=== PATIENT | female | born 1985 | race American Indian/Alaskan Native ===

== ENCOUNTER 2018-01-01 23:33 | Emergency (ER) | payer MEDICAID ==
--- NOTE | 2018-01-02 01:06 | XRay Report ---
FINAL REPORT PROCEDURE: XR CHEST ROUTINE 2V TECHNIQUE: PA and lateral chest radiographs were obtained. CPT 94612 HISTORY: Shortness of breath COMPARISON: No prior studies are available for comparison. FINDINGS: Heart: Normal. Mediastinum/Vessels: Normal. Lungs/Pleural space: Normal. Bony thorax: No acute osseous abnormality. Other: IMPRESSION: Normal examination.
[2018-01-02 01:25] LABS: Basophils % (Auto) 0.2 % (0.0-1.8); Eosinophils % (Auto) 0.5 % (0.0-4.3); Hematocrit 43.5 % (30.3-42.9); Hemoglobin 14.7 gm/dl (10.1-14.3); Lymphocytes # (Auto) 2.6 K/mm3 (1.2-5.4); Lymphocytes % (Auto) 27.2 % (13.4-35.0); Mean Corpuscular HGB Conc 34 % (30-34); Mean Corpuscular Hemoglobin 31 pg (28-32); Mean Corpuscular Volume 91 fl (79-97); Monocytes # (Auto) 0.6 K/mm3 (0.0-0.8); Monocytes % (Auto) 6.2 % (0.0-7.3); Platelet Count 328 K/mm3 (140-440); Red Cell Distribution Width 13.4 % (13.2-15.2)
[2018-01-02 01:49] LABS: BUN/Creatinine Ratio 29; Blood Urea Nitrogen 29 mg/dL (7-17); Calcium 9.9 mg/dL (8.4-10.2); Hemolysis Index 17
[2018-01-02] MEDS ORDERED: K-DUR PO ONE (02:41)
[2018-01-02 03:34] LABS: Bilirubin,Urine NEG (Negative); Blood,Urine NEG (Negative); Color,Urine Yellow (Yellow); Protein,Urine <15 mg/dL mg/dL (Negative); RBC,Urine < 1.0 /HPF (0.0-6.0); Urobilinogen,Urine < 2.0 mg/dL (<2.0); WBC,Urine < 1.0 /HPF (0.0-6.0)
[2018-01-02 03:35] LABS: HCG Qualitative,Urine Negative (Negative)
--- NOTE | 2018-01-02 03:54 | Emergency Department Report ---
- General Chief complaint: Dizziness Stated complaint: SOB/DIZZY/THROAT PAIN Time Seen by Provider: 01/02/18 02:03 Source: patient Mode of arrival: Ambulatory Limitations: No Limitations - History of Present Illness Initial comments: 32-year-old female presents to ED with complaints of generalized weakness 2 days. Patient reports that works out regularly. States in the last 2 days she was unable to finish her workouts because of shortness of breath, and feeling fatigued. She has history of lymphedema and hypertension. Takes Bumex and metoprolol. MD Complaint: generalized weakness, lack of energy -: days(s) (2) Location: generalized Severity: severe Severity scale (0 -10): 0 Consistency: constant Improves with: none Worsens with: none Associated Symptoms: shortness of breath. denies: chest pain, fever/chills, headaches, nausea/vomiting - Related Data Previous Rx's Medication Instructions Recorded Last Taken Type Potassium Chloride [K-Dur] 10 meq PO QDAY #10 tablet 01/02/18 Unknown Rx Allergies Allergy/AdvReac Type Severity Reaction Status Date / Time No Known Allergies Allergy Unverified 01/02/18 00:09 ED Review of Systems ROS: Stated complaint: SOB/DIZZY/THROAT PAIN Other details as noted in HPI Comment: All other systems reviewed and negative Constitutional: denies: chills, fever Respiratory: shortness of breath. denies: cough Cardiovascular: edema. denies: chest pain Gastrointestinal: denies: abdominal pain, nausea Neurological: denies: headache, numbness ED Past Medical Hx - Past Medical History Previous Medical History?: No - Surgical History Past Surgical History?: Yes Additional Surgical History: c sec X 4, breast augmentation, tummy tuck, tubaligation - Social History Smoking Status: Never Smoker Substance Use Type: None - Medications Home Medications: Home Medications Medication Instructions Recorded Confirmed Last Taken Type Potassium Chloride [K-Dur] 10 meq PO QDAY #10 tablet 01/02/18 Unknown Rx ED Physical Exam - General Limitations: No Limitations General appearance: alert, in no apparent distress - Head Head exam: Present: atraumatic, normocephalic - Eye Eye exam: Present: normal appearance, PERRL, EOMI - ENT ENT exam: Present: mucous membranes moist - Neck Neck exam: Present: normal inspection, full ROM - Respiratory Respiratory exam: Present: normal lung sounds bilaterally. Absent: respiratory distress - Cardiovascular Cardiovascular Exam: Present: regular rate, normal rhythm - GI/Abdominal GI/Abdominal exam: Present: soft. Absent: tenderness - Extremities Exam Extremities exam: Present: normal inspection, other (no edema present) - Neurological Exam Neurological exam: Present: alert, oriented X3, CN II-XII intact. Absent: motor sensory deficit - Psychiatric Psychiatric exam: Present: normal affect, normal mood - Skin Skin exam: Present: warm, dry, intact, normal color ED Course Vital Signs 01/02/18 01/02/18 01/02/18 00:10 02:15 02:41 Temperature 98.6 F 97.7 F Pulse Rate 97 H 90 Pulse Rate [ 83 Lying] Pulse Rate [ 76 Sitting] Pulse Rate [ 111 H Standing] Respiratory 16 14 Rate Blood Pressure 127/82 Blood Pressure 106/71 [Left] Blood Pressure 112/70 [Lying] Blood Pressure 133/78 [Sitting] Blood Pressure 128/92 [Standing] O2 Sat by Pulse 100 100 Oximetry 01/02/18 01/02/18 01/02/18 03:00 03:01 04:22 Temperature Pulse Rate 83 Pulse Rate [ 83 Lying] Pulse Rate [ 76 Sitting] Pulse Rate [ 111 H Standing] Respiratory 13 Rate Blood Pressure 128/92 118/63 Blood Pressure [Left] Blood Pressure 112/70 [Lying] Blood Pressure 133/78 [Sitting] Blood Pressure 128/92 [Standing] O2 Sat by Pulse 100 95 Oximetry ED Medical Decision Making - Lab Data Result diagrams: 01/02/18 00:57 01/02/18 00:57 - EKG Data -: EKG Interpreted by Ms EKG shows normal: sinus rhythm, axis, intervals, QRS complexes, ST-T waves Rate: normal - Medical Decision Making Patient complains of dizziness, shortness of breath, generalized weakness. Labs show hypokalemia. Chest x-ray and CT of the chest are both normal. Vital signs normal including O2 sats. Symptoms likely due to hypokalemia. Potassium tabs given here in the ED. Magnesium level checked and was needs no replacement. Potassium likely due to the Bumex that she is taking for her lymphedema. Patient advised to eat more potassium-rich foods. Follow up PCP - Differential Diagnosis , PE, pulm edema, pneumonia, anemia Critical care attestation.: If time is entered above; I have spent that time in minutes in the direct care of this critically ill patient, excluding procedure time. ED Disposition Clinical Impression: Hypokalemia, Dyspnea Disposition: DC- TO HOME OR SELFCARE Is pt being admited?: No Condition: Stable Instructions: Dyspnea (ED), Hypokalemia (ED), Potassium Content of Foods List ( ED) Prescriptions: Potassium Chloride [K-Dur] 10 meq PO QDAY #10 tablet Referrals: AYANA ZAYAS MD [Primary Care Provider] - 3-5 Days Time of Disposition: 04:56
[2018-01-02 04:29] VITALS: BP 118/63
--- NOTE | 2018-01-02 04:35 | Cat Scan Report ---
FINAL REPORT PROCEDURE: CT ANGIO CHEST TECHNIQUE: Computerized tomographic angiography of the chest was performed after the IV injection of iodinated nonionic contrast including image processing. The image data was postprocessed using 2-dimensional multiplanar reformatted (MPR) and 3-dimensional (MIP and/or volume rendered) techniques. HISTORY: sob COMPARISON: No prior studies are available for comparison. FINDINGS: Heart and pericardium: Normal. Thoracic aorta: Normal. Pulmonary vasculature: Normal. Lymph nodes: No enlarged thoracic lymph nodes. Lungs: Normal. Pleural space: No effusion, thickening, or pneumothorax. Musculoskeletal structures: No significant abnormality. Upper abdominal structures: No significant abnormality. IMPRESSION: There is no evidence of pulmonary arterial emboli. The lungs are clear without infiltrate, effusion or pneumothorax.
== END 2018-01-02 05:15 | disposition home or self-care (01) ==
LOC: ED 23:33
DX: E87.6 Hypokalemia (principal); R06.00 Dyspnea, unspecified; Z98.51 Tubal ligation status
CPT/HCPCS: 36415; 71046; 71275; 80048; 81001; 81025; 83735; 85025; 93005; 93010; 99284; Q9967